=== PATIENT | female | born 1975 | race Caucasian/White ===

== ENCOUNTER 2018-06-24 12:43 | Outpatient (CLI) | payer MEDICAID ==
[~2018-06-24] VITALS: Ht 152.4 cm; Wt 64.7 kg
[2018-06-24 13:36] VITALS: Ht 152.4 cm; Wt 64.7 kg
[2018-06-24 13:37] VITALS: BP 106/55; PULSE 65; RESP 18
[2018-06-24] MEDS: LACTATED RINGER'S 1,000 ML IV SCH ×2 (15:07→20:00)
--- NOTE | 2018-06-24 20:08 | PN ---
Triage Information Date/Time Reason for visit: Abd/pelvic pain Weeks of Gestation 36+ weeks /Para Diabetes: none Hypertention: none Objective Vital Signs Date Temp Pulse Resp B/P (MAP) Pulse Ox O2 O2 Flow FiO2 Time Delivery Rate 06/24/18 98.3 65 18 106/55 Room Air 13:37 (72) Heart Rate: 120's Heart Rate Comments Reactive Results/Medications Result Diagram: 06/24/18 1801 06/24/18 1801 Results 24 hrs Laboratory Tests Test 06/24/18 15:10 06/24/18 18:01 Urine Color YELLOW Urine Clarity CLEAR Urine pH 6.0 Urine Specific [place] 1.012 Urine Ketones 1+ H Urine Nitrite NEGATIVE Urine Bilirubin NEGATIVE Urine Urobilinogen NEGATIVE Urine Leukocyte Esterase TRACE A Urine Microscopic RBC 0 Urine Microscopic WBC 2 Urine Squamous Epithelial Cells FEW Urine Bacteria FEW A Urine Mucus FEW A Urine Hemoglobin NEGATIVE Urine Glucose NEGATIVE Urine Total Protein NEGATIVE White Blood Count 9.9 Red Blood Count 3.72 L Hemoglobin 12.0 Hematocrit 35.8 L Mean Corpuscular Volume 96.2 Mean Corpuscular Hemoglobin 32.3 Mean Corpuscular Hemoglobin Concent 33.5 Red Cell Distribution Width 13.7 Platelet Count 148 Mean Platelet Volume 9.3 Immature Granulocytes % 0.600 H Neutrophils % 86.3 H Lymphocytes % 7.6 L Monocytes % 4.9 Eosinophils % 0.5 Basophils % 0.1 Nucleated Red Blood Cells % 0.0 Immature Granulocytes # 0.060 H Neutrophils # 8.6 H Lymphocytes # 0.8 Monocytes # 0.5 Eosinophils # 0.1 Basophils # 0.0 Nucleated Red Blood Cells # 0.0 Glucose Level 79 Medications Current Medications Lactated Ringer's 1,000 ml @ 200 mls/hr Q5H IV Last administered on 06/24/18at 15:07; Admin Dose 200 MLS/HR; Start 06/24/18 at 15:00 Disposition: Discharge Assessment/Plan After rest and hydration, patient feels better and has no complaint. CEDRIC CUTLER MD Jun 24, 2018 20:08
[2018-06-24] MEDS ORDERED: PREN-99 PO (20:10)
[2018-06-24] MEDS ORDERED: FER325 PO (20:10)
--- NOTE | 2018-06-24 21:29 | TRIAGE ---
OB Triage Datetime Report Generated by CPN: 06/24/2018 21:28 Datetime: 06/24/2018 20:02 Labor Evaluation Frequency: IRREGULAR Monitor Mode: External Duration (sec)2399: 80-170 Quality: Mild Pattern: Normal: <= 5 Contractions in 10 Minutes Resting Tone [place]: Relaxed Heart Rate FHR Baseline Rate: 135 Monitor Mode: External US Variability: Moderate 6-25 bpm Accelerations: 15X15 Decelerations: None Category: Category I Datetime: 06/24/2018 20:01 Stage of : OB Triage Datetime: 06/24/2018 19:45 Stage of : OB Triage Datetime: 06/24/2018 19:44 Pain Assessment Pain Scale: 1 Pain Presence: Intermittent Pain Type: Pressure Pain Assessment Comments: LOWER ABDOMEN Datetime: 06/24/2018 19:43 Stage of : OB Triage Monitor Mode: External Monitor Mode: External US Datetime: 06/24/2018 18:05 Labor Evaluation Frequency: 9-15 MIN Monitor Mode: External Duration (sec)2399: 80 SEC Quality: Mild Pattern: Normal: <= 5 Contractions in 10 Minutes Resting Tone [place]: Relaxed Heart Rate FHR Baseline Rate: 140 Monitor Mode: External US FHR Baseline Changes: No Baseline Change Variability: Moderate 6-25 bpm Accelerations: 15X15 Decelerations: None Category: Category I Vaginal Exam Membrane Status: Intact Datetime: 06/24/2018 16:29 Labor Evaluation Frequency: 9-12 MIN Monitor Mode: External Duration (sec)2399: 80 SEC Quality: Mild Pattern: Normal: <= 5 Contractions in 10 Minutes Resting Tone [place]: Relaxed Heart Rate FHR Baseline Rate: 140 Monitor Mode: External US FHR Baseline Changes: No Baseline Change Variability: Moderate 6-25 bpm Accelerations: 15X15 Decelerations: None Category: Category I Vaginal Exam Membrane Status: Intact Datetime: 06/24/2018 15:43 Labor Evaluation Frequency: 10-12 min Monitor Mode: External Duration (sec)2399: 90 sec Quality: Mild Pattern: Normal: <= 5 Contractions in 10 Minutes Resting Tone [place]: Relaxed Heart Rate FHR Baseline Rate: 145 Monitor Mode: External US FHR Baseline Changes: No Baseline Change Variability: Moderate 6-25 bpm Accelerations: 15X15 Decelerations: None Category: Category I Vaginal Exam Membrane Status: Intact Datetime: 06/24/2018 14:58 Labor Evaluation Frequency: 8-10 min Monitor Mode: External Duration (sec)2399: 50 sec Quality: Mild Pattern: Normal: <= 5 Contractions in 10 Minutes Resting Tone [place]: Relaxed Interventions: Side to Side Heart Rate FHR Baseline Rate: 142 Monitor Mode: External US FHR Baseline Changes: No Baseline Change Variability: Moderate 6-25 bpm Accelerations: 15X15 Decelerations: None Category: Category I Datetime: 06/24/2018 13:48 Labor Evaluation Frequency: occasional Monitor Mode: External Duration (sec)2399: 40 sec Quality: Mild Pattern: Normal: <= 5 Contractions in 10 Minutes Resting Tone [place]: Relaxed Heart Rate FHR Baseline Rate: 140 Monitor Mode: External US FHR Baseline Changes: No Baseline Change Variability: Moderate 6-25 bpm Accelerations: 15X15 Decelerations: None Category: Category I Datetime: 06/24/2018 13:00 Assessment Type: Triage Time of Arrival: 06/24/2018 12:35 EGA: 36.5 Arrived By: Ambulatory Arrived From: Dr. Oropeza Chief Complaint: with 3 previous C/S c/o vag pressure and being dizzy. Movement: Present Contractions: Irregular Time Contractions Began: 06/24/2018 11:00 Rupture of Membranes: Denies Vaginal Bleeding: None Vaginal Discharge: Denies Recent Sexual Intercouse: Denies Abdominal Trauma: Not Applicable Time Provider Notified: 06/24/2018 14:30 Provider Notified: CHELSEA Initial Plan: EFM, IV hydration, CBC, random blood glucose, UA, BPP, SHARON Maternal Assessment Level of Consciousness: Fully Conscious DTR's/Clonus: DTRs 2+; No Clonus Headache: Denies Blurred Vision: No Respiratory Effort: Unlabored; Regular Rhythm; Equal Expansion Breath Sounds, Left: Clear and Equal Breath Sounds, Right: Clear and Equal Nausea/Vomiting: Denies RUQ Epigastric Pain: Denies Lower Extremities Edema: None Degree: None Upper Extremities Edema: None Degree: None Facial Edema: None Fall Risk Assessment History of Falling: (0) No Secondary Diagnosis: (0) No Ambulatory Aid: (0) Bedrest/Nurse Assist IV Therapy: (0) No Gait: (0) Normal/Bedrest/Immobile Mental Status: (0) Oriented to Own Ability Fall Score: 0 Fall Risk Score Definition: No Risk: No action required
== END 2018-06-24 20:34 | disposition home or self-care (01) ==
LOC: OBT 12:43 → L-D 12:43 → OBT 20:34
PROVIDERS: ATTEND Specialist
DX: O26.893 Other specified pregnancy related conditions, third trimester (principal); R10.2 Pelvic and perineal pain; Z3A.36 36 weeks gestation of pregnancy; R82.90 Unspecified abnormal findings in urine
CPT/HCPCS: 76818; 81001; 82947; 85025; J7120; Z7500; G0463

== ENCOUNTER 2018-07-17 05:55 | Inpatient (IN) | payer MEDICAID ==
[~2018-07-17] VITALS: Ht 149.9 cm; Wt 63.6 kg
[~2018-07-17 05:55] MED LIST: FER325 PO; PREN-99 PO
--- NOTE | 2018-07-17 06:31 | HP ---
Date/Time of Note Date/Time of Note DATE: 07/17/18 TIME: 06:27 OB - History Hx of Present Free Text/Dictation 43 YO with IUP at 40 weeks with EDC 07/17/2018 reports to L&D with uterine contractions and vaginal bleeding. Leonor had 3 previous deliveries and she desires to have repeat delivery. I discussed with the patient the risks, benefits, indications, and alternatives of procedure including but not limited to risks of infection, bleeding, damage to other organs, bowel, bladder, hernia formation, scar formation, possibility of blood transfusion, possible need for emergency hysterectomy. She was allowed to ask questions. All her questions were answered. Informed consent has been obtained. Care: Good Care Ultrasounds: Normal mid trimester US Obstetrical Complications: None Medical Complications: None Past Family/Social History * Past Medical, Surgical, Family and Obstetric Histories reviewed from chart. OB Admission Exam Physical Exam HEENT: WNL Heart: Rhythm Normal Lungs: Clear, Equal Abdomen: WNL Extremities: Normal Reflexes: Normal OB Assessment/Plan Other Assessment: 43 YO with IUP at 40 weeks Labor h/o 3 previous deliveries. Plan: Section MOHSEN TRAN MD Jul 17, 2018 06:31
[2018-07-17 06:49] VITALS: Ht 149.9 cm; Wt 63.6 kg
[2018-07-17 06:50] VITALS: BP 121/64; PULSE 60; RESP 16
[2018-07-17] MEDS ORDERED: OXYTOCIN 30 UNITS/LR 500 ML IV PRN (07:00)
[2018-07-17] MEDS ORDERED: METHYLERGONOVINE 0.2 MG INJ IM PRN (07:00)
[2018-07-17] MEDS ORDERED: MISOPROSTOL 200 MCG TAB PR PRN ×2 (07:00→07:30)
[2018-07-17] MEDS ORDERED: CARBOPROST 250 MCG INJ IM PRN (07:00)
--- NOTE | 2018-07-17 07:12 | PREAC ---
Date/Time of Note Date/Time of Note DATE: 07/17/18 TIME: 07:12 Anesthesia Eval and Record Evaluation Time Pre-Procedure Interview DATE: 07/17/18 TIME: 07:12 Age 43 Sex female NPO: 8 hrs Preoperative diagnosis Planned procedure repeat c/s Past Medical History Past Medical History: None Surgery & Anesthesia Issues No known issue Meds Anticoagulation: No Beta Kenji within 24 hr: No Reason Beta Kenji not given: Pt. not on B-Kenji Reported Medications Ferrous Sulfate* (Ferrous Sulfate*) 325 Mg Tabec, 325 MG PO DAILY, TAB 06/24/18 Vit #76/Iron,Carb/FA (Pnv 29-1 Tablet) 1 Each Tablet, 1 EACH PO, TAB 06/24/18 Current Medications Lactated Ringer's 1,000 ml @ 125 mls/hr Q8H IV ; Start 07/17/18 at 06:46 Cefazolin Sodium/ Dextrose 50 ml @ 100 mls/hr ONCE IVPB ; Start 07/17/18 at 07:00 Oxytocin/Lactated Ringer's 500 ml @ 0 mls/hr ONCE PRN IV .VAGINAL BLEEDING; Start 07/17/18 at 07:00 Methylergonovine Maleate (Methergine) 0.2 mg ONCE PRN IM .VAGINAL BLEEDING; Start 07/17/18 at 07:00 Carboprost Tromethamine (Hemabate) 250 mcg ONCE PRN IM .VAGINAL BLEEDING; Start 07/17/18 at 07:00 Misoprostol (Cytotec) 1,000 mcg ONCE PRN TX .VAGINAL BLEEDING; Start 07/17/18 at 07:00 Oxytocin/Lactated Ringer's 500 ml @ 125 mls/hr POST IV ; Start 07/17/18 at 09:00; Status UNV Meds reviewed: Yes Allergies Coded Allergies: shrimp (Verified Allergy, Intermediate, RASH on chest & abdomen, 07/17/18) Allergies Reviewed: Yes Labs/Studies Labs Reviewed: Reviewed by anesthesiologist Result Diagram: 07/17/18 0630 Laboratory Tests 07/17/18 06:30 test: Positive Pre-procedure Exam Last vitals Vital Signs Date Temp Pulse Resp B/P (MAP) Pulse Ox O2 O2 Flow FiO2 Time Delivery Rate 07/17/18 97.6 60 16 121/64 Room Air 06:50 (83) Airway: Adequate mouth opening, Adequate thyromental dist Mallampati: Mallampati II Teeth: Normal Lung: Normal Heart: Normal ASA Physical Status ASA physical status: 2 Emergency: None Planned Anesthetic Neuraxial: Spinal Planned Pain Management Sub-arachniod narcotics Pre-operative Attestations Prior to commencing anesthesia and surgery, the patient was re-evaluated, there was verification of: *The patient's identity *The results of appropriate recent lab work and preoperative vital signs *The above evaluation not changing prior to induction *Anesthetic plan, risk benefits, alternative and complications discussed with patient/family; questions answered; patient/family understands, accepts and wishes to proceed. QUEENIE BURR Jul 17, 2018 07:12
[2018-07-17] MEDS ORDERED: LACTATED RINGER'S 1,000 ML IV SCH (07:15)
[2018-07-17] MEDS: LACTATED RINGER'S 1,000 ML IV SCH ×3 (07:28→22:46)
[2018-07-17] MEDS ORDERED: FENTAnyl 50 MCG/ML VIAL IV PRN ×3 (07:30)
[2018-07-17] MEDS ORDERED: ALBUTEROL 0.083% (NEB) 2.5 MG/3 ML AMP HHN PRN (07:30)
[2018-07-17] MEDS ORDERED: LANOLIN HPA 1 PKT TOP PRN (07:30)
[2018-07-17] MEDS ORDERED: OXYCODONE/ACETAMINOPHEN (5/325) TAB PO PRN (07:30)
[2018-07-17] MEDS ORDERED: OXYTOCIN 30 UNITS/LR 500 ML IV SCH (07:30)
[2018-07-17] MEDS ORDERED: NA PHOSPHATE/BIPHOS 133 ML ENEMA PR PRN (07:30)
[2018-07-17] MEDS ORDERED: HYDROmorphONE 0.5 MG/0.5 ML SYG IV PRN ×2 (07:30)
[2018-07-17] MEDS ORDERED: ONDANSETRON 4 MG INJ IV PRN ×2 (07:30)
[2018-07-17] MEDS ORDERED: METOCLOPRAMIDE 10 MG INJ IV PRN (07:30)
[2018-07-17] MEDS ORDERED: KETOROLAC 30 MG INJ IV PRN ×2 (07:30)
[2018-07-17] MEDS ORDERED: DIPHENHYDRAMINE 50 MG INJ IV PRN ×2 (07:30)
[2018-07-17] MEDS ORDERED: HYDROmorphONE 1 MG/5 ML IV SYRINGE IV PRN ×3 (07:30)
[2018-07-17] MEDS ORDERED: NALOXONE (0.4 MG/ML) INJ IV PRN (07:30)
--- NOTE | 2018-07-17 07:37 | TRIAGE ---
OB Triage Datetime Report Generated by CPN: 07/17/2018 07:37 Datetime: 07/17/2018 07:00 Time of Arrival: 07/17/2018 05:55 EGA: 40.0 Arrived By: Ambulatory Arrived From: Home Chief Complaint: CONTRACTIONS Movement: Present Contractions: Irregular Rupture of Membranes: Denies Vaginal Bleeding: None Vaginal Discharge: Denies Recent Sexual Intercouse: Denies Abdominal Trauma: Not Applicable Patient Complaints: Contractions Time Provider Notified: 07/17/2018 06:20 Provider Notified: Initial Plan: EFM, ADMIT TO L_D FOR REPEAT SECTION Datetime: 07/17/2018 06:30 Stage of : OB Triage Maternal Assessment Level of Consciousness: Fully Conscious DTR's/Clonus: DTRs 2+; No Clonus Headache: Denies Blurred Vision: No Respiratory Effort: Unlabored; Regular Rhythm; Equal Expansion Breath Sounds, Left: Clear and Equal Breath Sounds, Right: Clear and Equal Nausea/Vomiting: Denies RUQ Epigastric Pain: Denies Facial Edema: None Temperature Route: Axillary Fall Risk Assessment History of Falling: (0) No Secondary Diagnosis: (0) No Ambulatory Aid: (0) Bedrest/Nurse Assist IV Therapy: (0) No Gait: (0) Normal/Bedrest/Immobile Mental Status: (0) Oriented to Own Ability Fall Score: 0 Fall Risk Score Definition: No Risk: No action required Datetime: 06/24/2018 13:00 EGA: 36.5 Fall Score: 0 Fall Risk Score Definition: No Risk: No action required
[2018-07-17] MEDS ORDERED: PHENYLephrine 10 MG INJ ONE (07:47)
[2018-07-17] MEDS ORDERED: morphine SULFATE/PF (10 MG/10 ML) INJ ONE (07:47)
[2018-07-17] MEDS: SENNA/DOCUSATE NA (8.6MG/50MG) TAB PO SCH ×2 (09:00→21:00)
--- NOTE | 2018-07-17 09:06 | OPR ---
Date/Time of Note Date/Time of Note DATE: 07/17/18 TIME: 09:04 Operative Report Procedure Date: Jul 17, 2018 Preoperative Diagnosis IUP at 40 weeks h/o deliveries x 3 Desires repeat delivery Labor Postoperative Diagnosis sane Operation/Procedure Performed Repeat Delivery Surgeon Ernie Ryan MD Electric Drill Operator Tacos White MD Anesthesia Type: spinal Estimated Blood Loss: other (700) Transfusion none Specimen none Grafts/Implants none Tubes/Drains Gracia Cath Complications none Pt Condition Post Procedure: stable Disposition: PACU Procedure Description The risks, benefits, indications, alternatives of procedure including, but not limited to risk of infection, bleeding, damage to other organs, bowel, bladder, hernia formation, scar formation, possibility of blood transfusions discussed with patient. She was allowed to ask questions. All her questions were answered. Informed consent was obtained. DESCRIPTION OF PROCEDURE: She was taken to the operating room. Spinal anesthesia was induced. She was prepped and draped in the usual sterile fashion. Surgical time out one. Anesthesia was tested to be adequate. With permission from anesthesiologist, a knife was used to make a Pfannenstiel skin incision. The incision was taken down in layers. The fascia was cut, undermined and from the underlying muscle using sharp and blunt dissection. All the bleeders were cauterized. Peritoneum was entered bluntly. A low transverse incision was developed over the uterus. Amniotic fluid was clear and adequate. A viable infant in vertex presentation was delivered without any difficulty. The cord was clamped and cut, handed to awaiting team. Placenta was then delivered. Uterus was exteriorized, wrapped around a moist lap. Inside uterus was cleaned using a dry lap. All residual membranes were removed. The uterine incision was then closed using #1 Monocryl in 2 layers. The uterus was inserted back inside the abdominal cavity. Irrigation was done carefully. Careful eval uation of the uterine incision revealed no further bleeding. The peritoneum and rectus muscles and fascia were evaluated. All bleeders cauterized. Peritoneum was closed using 2-0 Monocryl. At this time, the count was correct. Rectus muscle was reapproximated using 2-0 Monocryl. Rectus fascia was closed using #1 Vicryl. Subcutaneous tissue was cleaned and irrigated. All bleeders cauterized and the skin closed using Insorb. All counts correct. ERNIE RYAN MD Jul 17, 2018 09:06
--- NOTE | 2018-07-17 10:55 | PAC ---
Date/Time of Note Date/Time of Note DATE: 07/17/18 TIME: 10:55 Post-Anesthesia Notes Post-Anesthesia Note Last documented vital signs Vital Signs Date Temp Pulse Resp B/P (MAP) Pulse Ox O2 O2 Flow FiO2 Time Delivery Rate 07/17/18 97.6 60 16 121/64 Room Air 06:50 (83) Activity: WNL Respiratory function: WNL Cardiovascular function: WNL Mental status: Baseline Pain reasonably controlled: Yes Hydration appropriate: Yes Nausea/Vomiting absent: Yes QUEENIE BURR Jul 17, 2018 10:55
[2018-07-17] MEDS: OXYTOCIN 30 UNITS/LR 500 ML IV SCH ×2 (11:02→13:06)
[2018-07-17] MEDS: IBUPROFEN 600 MG TAB PO SCH ×2 (12:00→18:00)
[2018-07-17] MEDS: CEFAZOLIN 2 GM/50 ML (PMX) 50 ML IVPB SCH ×2 (12:06→16:17)
[2018-07-17 12:21] VITALS: BP 98/55; PULSE 74
[2018-07-17 16:00] VITALS: BP 91/56; PULSE 66; RESP 18
[2018-07-17 20:15] VITALS: BP 98/60; PULSE 78; RESP 18
[2018-07-18 00:01] VITALS: BP 90/55; PULSE 78; RESP 18
[2018-07-18 00:20] VITALS: BP 94/60; PULSE 76; RESP 18
[2018-07-18] MEDS: LACTATED RINGER'S 1,000 ML IV SCH (00:37)
[2018-07-18 03:31] VITALS: BP 98/58; PULSE 62; RESP 18
[2018-07-18] MEDS: IBUPROFEN 600 MG TAB PO SCH ×4 (06:00→18:19)
[2018-07-18 08:30] VITALS: BP 100/55; PULSE 63; RESP 17
--- NOTE | 2018-07-18 08:31 | QN ---
Documentation Comment s/p c/s Subjective: no complaint Objective: Afebrile, VSS NAD A&O Abdomen: soft, appropriate tender Incision: no sign of bleeding/infection mild lochia Extremity: 1+ edema bilaterally Assessment: S/p C/S. POD # 1 Recovering Well Plan: current care MOHSEN TRAN MD Jul 18, 2018 08:31
[2018-07-18] MEDS: SENNA/DOCUSATE NA (8.6MG/50MG) TAB PO SCH ×2 (09:11→21:17)
[2018-07-18] MEDS: OXYCODONE/ACETAMINOPHEN (5/325) TAB PO PRN (09:12)
[2018-07-18 15:46] VITALS: BP 100/56; PULSE 71; RESP 17
[2018-07-18 20:00] VITALS: BP 103/48; PULSE 70; RESP 18
[2018-07-19] MEDS: IBUPROFEN 600 MG TAB PO SCH ×5 (00:15→23:30)
[2018-07-19 04:00] VITALS: BP 93/55; PULSE 65; RESP 16
[2018-07-19 08:30] VITALS: BP 106/59; PULSE 66; RESP 20
[2018-07-19] MEDS: SENNA/DOCUSATE NA (8.6MG/50MG) TAB PO SCH ×2 (08:36→21:09)
--- NOTE | 2018-07-19 12:45 | QN ---
Documentation Comment POD #2 s/p repeat Pt doing well and with good pain management. Has not breastfed or pumped. Baby has been with bili-lites but it is being discontinued now. Noticed a bit of blood from the incision. T=97.6 BP 106/59 Fundus firm. Incision with a lightly uneven edge at midline and therefore has a raw edge popping up with a bit of blood noted as it is being rubbed after she took a shower and there is no cover on it. Otherwise all clean, dry and intact and without evidence of infection. Ext NT, no edema. WBC 9.4 Hgb 10.2 Plts 132K P: Continue care. Plan d/c tomorrow. Asked the nurse to place a Telfa pad over the incision to protect it. VIVIANA SERVIN MD Jul 19, 2018 12:45
[2018-07-19 15:36] VITALS: BP 114/58; PULSE 82; RESP 18
[2018-07-19 19:30] VITALS: BP 110/52; PULSE 74; RESP 19
[2018-07-19] MEDS ORDERED: GUAIFENESIN/DM 5ML CUP PO PRN (23:00)
[2018-07-20] MEDS: OXYCODONE/ACETAMINOPHEN (5/325) TAB PO PRN (02:53)
[2018-07-20 03:35] VITALS: BP 94/54; PULSE 68; RESP 18
[2018-07-20] MEDS: IBUPROFEN 600 MG TAB PO SCH ×2 (05:38→13:01)
[2018-07-20 08:05] VITALS: BP 87/58; PULSE 59; RESP 18
[2018-07-20] MEDS: SENNA/DOCUSATE NA (8.6MG/50MG) TAB PO SCH (08:30)
[2018-07-20] MEDS ORDERED: DIPHTH/TET/ACEL PERTUSS (ADULT) 0.5 ML VIAL IM* ONE (09:00)
[2018-07-20] MEDS ORDERED: MEASLES,MUMPS,RUBELLA VACCINE INJ SC* ONE (09:00)
--- NOTE | 2018-07-20 12:09 | DS ---
Date/Time of Note Date/Time of Note DATE: 07/20/18 TIME: 12:09 Obstetrical Discharge Record Final Diagnosis Final Diagnosis: Term delivered Section Section: Repeat Complications Augmentation: No Induction: No Rupture of Membranes: No Condition on Discharge Physical Assessment Voiding: Yes Bowel Movement: Yes Breast: Soft, non-tender, Filling Fundus: Firm Abdomen and Incision: soft, appropriate tenderness Calf Tenderness: No Patient Condition: Good MOHSEN TRAN MD Jul 20, 2018 12:09
--- NOTE | 2018-07-21 15:13 | DELSUM ---
Delivery Summary A-C Datetime Report Generated by CPN: 07/21/2018 15:13 DELIVERY PERSONNEL Unbundler: Duvo, Aida MATERNAL INFORMATION Delivery Anesthesia: Spinal Medications in Delivery: see anesthsia record Delivery QBL (ml): 600 Placenta Cultured: No Maternal Complications: Other Other Maternal Complications: AMA LABOR SUMMARY EDC: 07/17/2018 00:00 No. Babies in Womb: 1 Attempted: No Labor Anesthesia: None LABOR INFORMATION Reason for Induction: Not Applicable Oxytocin: N/A Group B Beta Strep: Negative Antibiotics # of Doses: 1 Antibiotics Time of Last Dose: 07/17/2018 08:21 Steroids Given: None Reason Steroids Not Administered: Not Applicable MEMBRANES Membranes Rupture Method: Artificial Rupture of Membranes: 07/17/2018 08:32 Length of Rupture (hr): 0.00 Amniotic Fluid Color: Clear Amniotic Fluid Amount: Moderate Amniotic Fluid Odor: None STAGES OF LABOR Stage 3 hr: 0 Stage 3 min: 1 CSECTION DELIVERY Primary Indication: Repeat Elective Secondary Indication: N/A CSection Urgency: Elective CSection Incidence: Repeat Labor: No Labor Elective: Elective CSection Incision: Lower Uterine Transverse BABY A INFORMATION Delivery Date/Time: 07/17/2018 08:32 Method of Delivery: Born in Route : No : N/A Forceps: N/A Vacuum Extraction: N/A Shoulder Dystocia : No SHOULDER DYSTOCIA BABY A Infant Delivery Date/Time: 07/17/2018 08:32 PRESENTATION/POSITION BABY A Presentation: Cephalic Cephalic Presentation: Vertex Vertex Position: Left Occipital Anterior Breech Presentation: N/A PLACENTA INFORMATION BABY A Placenta Delivery Time : 07/17/2018 08:33 Placenta Method of Delivery: Manual Removal Placenta Status: Delivered SCORES BABY A Heart Rate 1 min: >100 bpm Resp Effort 1 min: Good Cry Reflex Irritability 1 min: Cough/Sneeze/Pulls Away Muscle Tone 1 min: Active Motion Color 1 min: Blue/Pale Resuscitation Effort 1 min: Tactile Stimulation; Oxygen; PPV/NCPAP SCORE 1 MIN: 8 Heart Rate 5 min: >100 bpm Resp Effort 5 min: Good Cry Reflex Irritability 5 min: Cough/Sneeze/Pulls Away Muscle Tone 5 min: Active Motion Color 5 min: Body [place], Extremit Blue Resuscitation Effort 5 min: Tactile Stimulation SCORE 5 MIN: 9 INFANT INFORMATION BABY A Gestational Age at Delivery: 40.0 Gestational Status: Full Term- 39- 40.6 Weeks Infant Outcome : Liveborn Infant Condition : Stable Infant Sex: Male IDENTIFICATION/MEDS BABY A ID Band Number: [id number] ID Band Location: Right Leg; Left Arm Sensor Applied: Yes Sensor Number: [id number] Sensor Location : Cord Clamp Vitamin K Given : Not Given Erythromycin Given: Not Given WEIGHT/LENGTH BABY A Birthweight (gm): 3580 Weight (lb): 7 Weight (oz): 14 Infant Length (in): 20.00 Length (cm): 50.80 CORD INFORMATION BABY A No. Cord Vessels: 3 Nuchal Cord : N/A Cord Blood Taken: Yes Infant Suction: Mouth; Nose ASSESSMENT BABY A Complications: None Physical Findings at Delivery: Within Normal Limits Physical Findings- Other: blue circular shamika behind left shoulder Respirations: Appears Normal; Grunting [place]/ALS Called : Yes Care By: Karley CHAVEZ RN Transferred To: Remains with Mother
--- NOTE | 2018-07-23 15:56 | CONS ---
Consultation Date/Type/Reason Admit Date/Time Jul 17, 2018 at 06:30 Initial Consult Date 07/17/18 Type of Consult anesthesiology Reason for Consultation follow up Date/Time of Note DATE: 07/23/18 TIME: 15:54 24 HR Interval Summary Free Text/Dictation Pt seen and examined on 07/18/18 is POD#1 s/p repeat c/s. Pt received spinal duramorph for post-op pain control. No N/V/VASQUEZ. Exam/Review of Systems Exam Vitals Vital Signs Date Temp Pulse Resp B/P (MAP) Pulse Ox O2 O2 Flow FiO2 Time Delivery Rate 07/20/18 98.2 59 18 87/58 (68) Room Air 08:05 QUEENIE BURR Jul 23, 2018 15:56
== END 2018-07-20 15:13 | disposition home or self-care (01) | DRG 788 ==
LOC: OBT 05:55 → L-D 05:55 → OBT 06:30 → L-D 07:47 → PP1 16:25
PROVIDERS: ADMIT Specialist; ATTEND Specialist
PROC: 10D00Z1 Extraction of Products of Conception, Low, Open Approach (ICD-10-PCS; principal; 2018-07-17 08:30)
DX: O34.211 Maternal care for low transverse scar from previous cesarean delivery (principal); Z3A.40 40 weeks gestation of pregnancy; Z37.0 Single live birth
CPT/HCPCS: 85025; 85610; 85730; 86592; 86850; 86900; 86901; 87340; G0463; J1885; J2274; J2590; J3010; J7120